=== PATIENT | male | born 1955 | race Caucasian/White ===

== ENCOUNTER 2016-08-29 11:33 | Emergency (ER) | payer MEDICAID ==
[~2016-08-29] VITALS: Ht 172.7 cm; Wt 75.0 kg
[2016-08-29] MEDS ORDERED: TETANUS, DIPHTHERIA, PERTUSSIS VAC/PF 0.5ML (>7YR OLD) IM ONE (11:45)
[2016-08-29] MEDS ORDERED: ETOMIDATE 2MG/ML 10ML VIAL IV ONE ×3 (11:45→14:37)
[2016-08-29] MEDS ORDERED: CEFAZOLIN 1000MG PREMIX 50 ML IV ONE (11:45)
[2016-08-29] MEDS ORDERED: SUCCINYLCHOLINE CHLORIDE 200MG/10ML VIAL IV ONE ×2 (11:45→14:37)
[2016-08-29] MEDS ORDERED: PROPOFOL 10MG/ML 100ML 100 ML IV ONE (11:45)
[2016-08-29] MEDS ORDERED: VECURONIUM BROMIDE 10 MG/VIAL IV ONE ×2 (12:00→14:37)
[2016-08-29] MEDS ORDERED: LACTATED RINGERS 1,700 ML IV SCH (12:00)
[2016-08-29] MEDS ORDERED: HYDRALAZINE 20MG/ML VIAL IV ONE (13:00)
[2016-08-29 13:01] LABS: BG BASE EXCESS -11.8 mmol/L (-2.0-2.0); BG CARBOXYHEMOGLOBIN 17.5 % (0.5-1.5); BG DEOXYHEMOGLOBIN 0.9 % (0.0-5.0); BG FRACTION INSPIRED OXYGEN 100; BG HCO3 ACT 18.1 mmol/L (22.0-26.0); BG METHEMOGLOBIN 0.3 % (0.0-1.5); BG OXYGEN SATURATION 98.9 % (92.0-98.5); BG OXYHEMOGLOBIN 81.3 % (94.0-97.0); BG PCO2 58.9 mmHg (35.0-45.0); BG PH 7.106 (7.350-7.450); BG PO2 482.9 mmHg (75.0-100.0); BG SAMPLE SITE RIGHT BRACHIAL; BG TIDAL VOLUME(mL) 600 mL; BG TOTAL HEMOGLOBIN 12.9 g/dL (12.0-18.0); BG VENT MODE VENT - A/C; BG VENT RATE 14 set
[2016-08-29] MEDS ORDERED: CALCIUM CHLORIDE 1GM/10ML SYR IV ONE (13:15)
[2016-08-29] MEDS ORDERED: SODIUM BICARBONATE 8.4% 1 MEQ/ML 50ML SYR IV ONE (13:15)
[2016-08-29 13:34] LABS: CHLORIDE 109 mEq/L (98-107)
[2016-08-29 13:41] LABS: CARBON DIOXIDE 18 mEq/L (21-32); TROPONIN I < 0.02 ng/mL (0.00-0.04)
[2016-08-29 13:47] LABS: CREATINE KINASE 272 IU/L (39-308)
[2016-08-29 14:09] LABS: BASOPHILS % 0.2 % (0.0-2.0); EOSINOPHILS % 0.6 % (0.0-5.0); HEMATOCRIT. 37.5 % (42.0-52.0); HEMOGLOBIN. 11.8 g/dL (14.0-18.0); LYMPHOCYTES % 13.6 % (20.0-50.0); MEAN CORPUSCULAR HEMOGLOBIN 27.4 pg (28.0-32.0); MEAN CORPUSCULAR VOLUME 87.2 fL (80.0-94.0); MEAN PLATELET VOLUME 7.4 fl (7.4-10.4); NEUTROPHILS % 80.6 % (40.0-76.0); PLATELET 249 x1000/uL (130-400); RED CELL DISTRIBUTION WIDTH 14.7 % (11.6-14.6)
[2016-08-29 14:16] LABS: PARTIAL THROMBOPLASTIN TIME 26.9 sec (24.0-34.0); PROTHROMBIN TIME 10.1 sec
[2016-08-29] MEDS ORDERED: STERILE WATER FOR INJECTION 10ML VIAL ONE (14:37)
[2016-08-29] MEDS ORDERED: PIPERACILLIN/TAZ 3.375G PREMIX 50 ML IV ONE (15:00)
[2016-08-29 16:29] VITALS: BP 117/72
== END 2016-08-29 16:46 | disposition short-term general hospital (02) ==
LOC: EDBD 11:47 → ER 11:47
DX: T26.42XA Burn of left eye and adnexa, part unspecified, initial encounter (principal); T26.41XA Burn of right eye and adnexa, part unspecified, initial encounter; T28.0XXA Burn of mouth and pharynx, initial encounter; T20.04XA Burn of unspecified degree of nose (septum), initial encounter; T24.002A Burn of unspecified degree of unspecified site of left lower limb, except ankle and foot, initial encounter; T31.11 Burns involving 10-19% of body surface with 10-19% third degree burns; J96.00 Acute respiratory failure, unspecified whether with hypoxia or hypercapnia; I45.10 Unspecified right bundle-branch block; D72.829 Elevated white blood cell count, unspecified; E87.2 Acidosis; X76.XXXA Intentional self-harm by smoke, fire and flames, initial encounter; Y93.89 Activity, other specified; Y92.018 Other place in single-family (private) house as the place of occurrence of the external cause
CPT/HCPCS: 31500; 31525; 36415; 36600; 71010; 80053; 82375; 82550; 82805; 83605; 83690; 83880; 84443; 84484; 85025; 85610; 85730; 87040; 90471; 90715; 93005; 94002; 96365; 96366; 96367; 96375; 99291; A4216; J0330; J0360; J0690; J2543; J2704; J3490; Z7610; J7120